=== PATIENT | male | born 1955 | race African-American/Black ===

== ENCOUNTER 2018-12-29 02:28 | Emergency (ER) | payer SELFPAY ==
[~2018-12-29] VITALS: Ht 180.3 cm; Wt 78.0 kg
[2018-12-29] MEDS ORDERED: ONDANSETRON 4MG ODT PO ONE (02:45)
[2018-12-29] MEDS ORDERED: SODIUM CHLORIDE 0.9% 1,000 ML IV ONE (03:15)
[2018-12-29 03:27] LABS: BASOPHILS % 0.4 % (0.0-2.0); EOSINOPHILS % 0.3 % (0.0-5.0); HEMATOCRIT. 36.5 % (42.0-52.0); HEMOGLOBIN. 12.3 g/dL (14.0-18.0); LYMPHOCYTES % 17.3 % (20.0-50.0); MEAN CORPUSCULAR HEMOGLOBIN 30.9 pg (28.0-32.0); MEAN CORPUSCULAR VOLUME 91.6 fL (80.0-94.0); MEAN PLATELET VOLUME 8.9 fl (7.4-10.4); MONOCYTES % 7.2 % (2.0-8.0); NEUTROPHILS % 74.8 % (40.0-76.0); PLATELET 197 x1000/uL (130-400); RED BLOOD CELL COUNT 3.99 mill/uL (4.7-6.1); RED CELL DISTRIBUTION WIDTH 13.1 % (11.6-14.6)
[2018-12-29 03:36] LABS: CHLORIDE 98 mEq/L (98-107)
[2018-12-29 03:40] LABS: ETHANOL BLOOD < 10 mg/dL
[2018-12-29 06:30] LABS: CLARITY URINE CLEAR (CLEAR); COLOR URINE YELLOW (YELLOW); KETONES URINE NEGATIVE (NEGATIVE); LEUKOCYTE ESTERASE URINE NEGATIVE (NEGATIVE); NITRITE URINE NEGATIVE (NEGATIVE); OCCULT BLOOD URINE NEGATIVE (NEGATIVE); PROTEIN URINE NEGATIVE (NEGATIVE); SPECIFIC GRAVITY URINE 1.021 (1.005-1.030)
[2018-12-29 07:00] LABS: *AMPHETAMINES SCREEN URINE NEGATIVE (NEGATIVE); *BARBITURATES SCREEN URINE NEGATIVE (NEGATIVE)
[2018-12-29 07:01] LABS: *BENZODIAZEPINES SCREEN URINE NEGATIVE (NEGATIVE); *COCAINE SCREEN URINE PRESUMTIVE POSITIVE (NEGATIVE); CANNABINOID URINE SCREEN NEGATIVE (NEGATIVE); METHADONE URINE SCREEN NEGATIVE (NEGATIVE); OPIATES URINE SCREEN NEGATIVE (NEGATIVE); PHENCYCLIDINE URINE SCREEN NEGATIVE (NEGATIVE)
[2018-12-29 10:35] VITALS: BP 155/80
== END 2018-12-29 11:00 | disposition home or self-care (01) ==
LOC: ER 02:28
DX: T40.5X1A Poisoning by cocaine, accidental (unintentional), initial encounter (principal); Y92.9 Unspecified place or not applicable; K92.0 Hematemesis; W01.0XXA Fall on same level from slipping, tripping and stumbling without subsequent striking against object, initial encounter; Y93.9 Activity, unspecified
CPT/HCPCS: 36415; 80053; 80305; 80307; 80320; 80329; 81003; 82962; 85025; 96360; 96361; 99283; J7030; Q0162; Z7610; G0480

== ENCOUNTER 2025-01-05 21:48 | Inpatient (IN) | payer MEDICARE, MEDICAID ==
[~2025-01-05] VITALS: Ht 172.7 cm; Wt 61.7 kg
[~2025-01-05 21:48] MED LIST: INSU100I28 SQ
[2025-01-05 21:49] VITALS: O2SAT 100
[2025-01-05] MEDS: SODIUM CHLORIDE 0.9% (SEPSIS BOLUS) IV ONE (22:26)
[2025-01-05] MEDS: PIPERACILLIN/TAZO 3.375G/50ML 50 ML IV ONE (22:27)
[2025-01-05 22:35] LABS: HEMATOCRIT. 43.8 % (42.0-52.0); HEMOGLOBIN. 13.8 g/dL (14.0-18.0); MEAN PLATELET VOLUME 8.9 fl (7.4-10.4); PLATELET 281 x1000/uL (130-400); RED BLOOD CELL COUNT 4.84 mill/uL (4.7-6.1); RED CELL DISTRIBUTION WIDTH 14.6 % (11.6-14.6)
[2025-01-05 22:45] LABS: INR 1.1
[2025-01-05 22:48] LABS: CREATININE 1.1 mg/dL (0.6-1.3); UREA NITROGEN BLOOD 32 mg/dL (9-23)
[2025-01-05 22:49] LABS: ETHANOL BLOOD < 10 mg/dL (<10)
[2025-01-05 22:50] LABS: ASPARTATE AMINOTRANSFERASE 15 IU/L (<34); BILIRUBIN DIRECT 0.5 mg/dL (<=3.0)
[2025-01-05 22:51] LABS: BILIRUBIN TOTAL 1.4 mg/dL (0.1-1.0); PROTEIN TOTAL 8.4 g/dL (6.0-8.3)
[2025-01-05 22:53] LABS: LYMPHOCYTES % MANUAL 6.0 % (20.0-50.0); MONOCYTES % MANUAL 1.0 % (2.0-8.0); NEUTROPHILS % MANUAL 93.0 % (45.0-75.0); PLATELET ESTIMATE NORMAL
[2025-01-05 23:09] LABS: TROPONIN I HIGH SENSITIVITY 75 ng/L (3.0-53)
[2025-01-05] MEDS: VANCOMYCIN 1G PREMIX 200 ML IV ONE (23:19)
[2025-01-06] MEDS ORDERED: ACETAMINOPHEN 325MG TABLET PO PRN (01:00)
[2025-01-06] MEDS ORDERED: ONDANSETRON HCL 4MG/2ML INJ IV PRN (01:00)
[2025-01-06] MEDS ORDERED: MAGNESIUM/ALUMINUM HYDROXIDE/SIMETHICONE 30ML UDC PO PRN (01:00)
[2025-01-06] MEDS ORDERED: DEXTROSE 50% WATER 50ML SYRINGE IV PRN (01:00)
[2025-01-06] MEDS: SODIUM CHLORIDE 0.9% 1,000 ML IV SCH (03:04)
[2025-01-06] MEDS: HYDROCODONE/ACETAMINOPHEN 5/325MG TABLET PO PRN (03:19)
[2025-01-06 03:50] VITALS: BP 120/75; PULSE 101; RESP 18; TEMP 36.418
[2025-01-06 05:29] LABS: INFLUENZA TYPE A Presumptive Negative (Pres. Neg.)
[2025-01-06 05:30] LABS: INFLUENZA TYPE B Presumptive Negative (Pres. Neg.)
[2025-01-06 05:32] LABS: RESPIRATORY SYNCYTIAL VIRUS Not Detected (Not Detectd)
[2025-01-06] MEDS: PIPERACILLIN/TAZO 3.375G/50ML 50 ML IV SCH (05:59)
[2025-01-06] MEDS: BLOOD SUGAR DIAGNOSTIC STRIP TEST SCH (07:03)
[2025-01-06] MEDS: MORPHINE SULFATE 2 MG/ML INJ (NOT FOR IM USE) IV PRN (07:09)
[2025-01-06 08:00] VITALS: BP 129/72; PULSE 87; RESP 17; TEMP 36.6; O2SAT 100
[2025-01-06] MEDS: INSULIN LISPRO 100 UNITS/ML SUBCUT SCH (08:48)
[2025-01-06] MEDS: PANTOPRAZOLE SODIUM 40 MG/VIAL IV SCH (08:48)
[2025-01-06] MEDS: ENOXAPARIN 40MG/0.4ML SYR SUBCUT SCH (08:49)
[2025-01-06] MEDS: VANCOMYCIN 750MG/150ML (BAXTER) IV SCH (10:22)
[2025-01-06 12:00] VITALS: BP 139/71; PULSE 93; RESP 18; TEMP 36.6; O2SAT 100
[2025-01-06 16:00] VITALS: BP 142/74; PULSE 89; RESP 20; TEMP 36.2; O2SAT 97
[2025-01-06 18:47] LABS: TROPONIN I HIGH SENSITIVITY 120 ng/L (3.0-53)
[2025-01-06 20:00] VITALS: BP 145/82; PULSE 84; RESP 17; TEMP 36.9; O2SAT 100
[2025-01-06] MEDS: ZOLPIDEM TARTRATE 5MG TABLET PO PRN (20:43)
[2025-01-06] MEDS: INSULIN GLARGINE 100 UNITS/ML SUBCUT SCH (21:26)
[2025-01-07] VITALS: BP 137/87; PULSE 83; RESP 18; TEMP 36.8; O2SAT 100
[2025-01-07 04:00] VITALS: BP 139/74; PULSE 75; RESP 18; TEMP 36.6; O2SAT 100
[2025-01-07 07:36] LABS: BASOPHILS % 0.5 % (0.0-2.0); EOSINOPHILS % 0.4 % (0.0-5.0); HEMATOCRIT. 32.4 % (42.0-52.0); HEMOGLOBIN. 10.5 g/dL (14.0-18.0); LYMPHOCYTES % 12.9 % (20.0-50.0); MEAN PLATELET VOLUME 8.5 fl (7.4-10.4); MONOCYTES % 11.8 % (2.0-8.0); NEUTROPHILS % 74.4 % (40.0-76.0); PLATELET 189 x1000/uL (130-400); RED BLOOD CELL COUNT 3.66 mill/uL (4.7-6.1); RED CELL DISTRIBUTION WIDTH 14.7 % (11.6-14.6)
[2025-01-07 07:52] LABS: CREATININE 0.7 mg/dL (0.6-1.3)
[2025-01-07 07:55] LABS: T4 FREE 0.95 ng/dL (0.89-1.76); UREA NITROGEN BLOOD 17 mg/dL (9-23)
[2025-01-07 08:00] VITALS: BP 155/81; PULSE 74; RESP 18; TEMP 36.8; O2SAT 98
[2025-01-07] MEDS: VANCOMYCIN 1G PREMIX 200 ML IV SCH (11:49)
[2025-01-07 12:00] VITALS: BP 177/86; PULSE 71; RESP 18; TEMP 37; O2SAT 100
[2025-01-07] MEDS: CLONIDINE 0.1MG TABLET PO PRN (12:39)
[2025-01-07 16:00] VITALS: BP 155/89; PULSE 70; RESP 18; TEMP 36.5; O2SAT 100
[2025-01-07 20:00] VITALS: BP 155/87; PULSE 72; RESP 18; TEMP 36.6; O2SAT 93
[2025-01-07] MEDS: AMLODIPINE 5MG TABLET PO SCH (22:10)
[2025-01-08] VITALS: BP 153/87; PULSE 65; RESP 18; TEMP 36.6; O2SAT 96
[2025-01-08 04:00] VITALS: BP 167/86; PULSE 66; RESP 18; TEMP 36.8; O2SAT 96
[2025-01-08 06:37] LABS: CLARITY URINE CLEAR (CLEAR); COLOR URINE DARK YELLOW (YELLOW); GLUCOSE URINE 3+ (NEGATIVE); KETONES URINE 1+ (NEGATIVE); LEUKOCYTE ESTERASE URINE NEGATIVE (NEGATIVE); NITRITE URINE NEGATIVE (NEGATIVE); OCCULT BLOOD URINE NEGATIVE (NEGATIVE); PH URINE 6.5 (4.5-8.0); PROTEIN URINE 1+ (NEGATIVE); SPECIFIC GRAVITY URINE 1.029 (1.005-1.030); UROBILINOGEN URINE >8.0 E.U./dL (0.2-1.0)
[2025-01-08 06:44] LABS: BASOPHILS % 0.3 % (0.0-2.0); EOSINOPHILS % 0.7 % (0.0-5.0); HEMATOCRIT. 34.0 % (42.0-52.0); HEMOGLOBIN. 11.0 g/dL (14.0-18.0); LYMPHOCYTES % 11.4 % (20.0-50.0); MEAN PLATELET VOLUME 8.6 fl (7.4-10.4); MONOCYTES % 11.9 % (2.0-8.0); NEUTROPHILS % 75.7 % (40.0-76.0); PLATELET 196 x1000/uL (130-400); RED BLOOD CELL COUNT 3.84 mill/uL (4.7-6.1); RED CELL DISTRIBUTION WIDTH 14.2 % (11.6-14.6)
[2025-01-08 07:00] LABS: BACTERIA URINE NONE SEEN; RBC URINE NONE SEEN /hpf (0-2); SQUAMOUS EPITHELIAL CELL URINE NONE SEEN /lpf (RARE/1+); WBC URINE NONE SEEN /hpf (0-2); YEAST URINE 2+
[2025-01-08 07:02] LABS: CREATININE 0.6 mg/dL (0.6-1.3); UREA NITROGEN BLOOD 11 mg/dL (9-23)
[2025-01-08 07:08] LABS: *AMPHETAMINES SCREEN URINE NEGATIVE (NEGATIVE)
[2025-01-08 07:09] LABS: *BARBITURATES SCREEN URINE NEGATIVE (NEGATIVE); *BENZODIAZEPINES SCREEN URINE NEGATIVE (NEGATIVE); *COCAINE SCREEN URINE NEGATIVE (NEGATIVE); METHADONE URINE SCREEN NEGATIVE (NEGATIVE); OPIATES URINE SCREEN PRESUMPTIVE POSITIVE (NEGATIVE)
[2025-01-08 07:11] LABS: CANNABINOID URINE SCREEN NEGATIVE (NEGATIVE); ECSTASY MDMA SCREEN URINE NEGATIVE (NEGATIVE); PHENCYCLIDINE URINE SCREEN NEGATIVE (NEGATIVE)
[2025-01-08] MEDS: FAMOTIDINE 20MG/2ML VIAL IV SCH (10:24)
[2025-01-08] MEDS: LOSARTAN 50 MG TABLET PO SCH (13:45)
[2025-01-08 20:00] VITALS: BP 142/85; PULSE 69; RESP 16; TEMP 36; O2SAT 97
[2025-01-09] VITALS: BP 123/76; PULSE 75; RESP 16; TEMP 36.5; O2SAT 96
[2025-01-09 07:21] LABS: BASOPHILS % 0.5 % (0.0-2.0); EOSINOPHILS % 0.6 % (0.0-5.0); HEMATOCRIT. 33.2 % (42.0-52.0); HEMOGLOBIN. 10.8 g/dL (14.0-18.0); LYMPHOCYTES % 16.1 % (20.0-50.0); MEAN PLATELET VOLUME 8.4 fl (7.4-10.4); MONOCYTES % 11.7 % (2.0-8.0); NEUTROPHILS % 71.1 % (40.0-76.0); PLATELET 194 x1000/uL (130-400); RED BLOOD CELL COUNT 3.79 mill/uL (4.7-6.1); RED CELL DISTRIBUTION WIDTH 14.3 % (11.6-14.6)
[2025-01-09 07:27] LABS: CREATININE 0.6 mg/dL (0.6-1.3)
[2025-01-09 07:28] LABS: UREA NITROGEN BLOOD 9 mg/dL (9-23)
[2025-01-09 08:00] VITALS: BP 158/81; PULSE 67; RESP 20; TEMP 36.7; O2SAT 95
[2025-01-09 08:04] LABS: VITAMIN B12 SERUM > 2000 pg/mL (211-911)
[2025-01-09] MEDS ORDERED: IOHEXOL-350 100 ML BOTTLE ONE (08:40)
[2025-01-09] MEDS: POTASSIUM CHLORIDE 20MEQ/PACKET PO SCH (09:30)
[2025-01-09] MEDS ORDERED: NALOXONE HCL 0.4MG/ML VIAL IV PRN (10:15)
[2025-01-09] MEDS: ASCORBIC ACID 250 MG TABLET PO SCH (10:15)
[2025-01-09] MEDS: FERROUS SULFATE 325MG TABLET PO SCH (10:15)
[2025-01-09 12:00] VITALS: BP 119/70; PULSE 77; RESP 20; TEMP 36.6; O2SAT 97
[2025-01-09 16:00] VITALS: BP 130/70; PULSE 75; RESP 18; TEMP 36.3; O2SAT 96
[2025-01-09] MEDS: CEFTRIAXONE 2GM/50ML 50 ML IV SCH (17:14)
[2025-01-09] MEDS: POTASSIUM CHLORIDE 20MEQ TABLET SR PO SCH (17:21)
[2025-01-09 20:00] VITALS: BP 139/76; PULSE 81; RESP 19; TEMP 36.4; O2SAT 97
[2025-01-10] VITALS: BP 152/74; PULSE 79; RESP 20; TEMP 36.5; O2SAT 96
[2025-01-10 04:00] VITALS: BP 143/89; PULSE 72; RESP 19; TEMP 36.4; O2SAT 96
[2025-01-10 08:00] VITALS: BP 138/77; PULSE 79; RESP 20; TEMP 36.4; O2SAT 100
[2025-01-10] MEDS ORDERED: LIDOCAINE HCL 1% 10 MG/ML 10ML VIAL ONE (12:48)
[2025-01-10] MEDS ORDERED: LOSA50TA41 PO (19:04)
[2025-01-10] MEDS ORDERED: AMLO5TAB88 PO (19:04)
[2025-01-10] MEDS ORDERED: FERR-63 PO (19:04)
[2025-01-10 20:00] VITALS: BP 159/87; PULSE 67; RESP 16; TEMP 36.7; O2SAT 99
[2025-01-10] MEDS ORDERED: CEFT2FRO5 IV (21:10)
[2025-01-10 21:24] VITALS: BP 159/87; PULSE 67; RESP 16; TEMP 98.1
== END 2025-01-10 22:50 | disposition home or self-care (01) | DRG 871 ==
LOC: ER 21:48 → EDBEDREQTM 01-06 01:19 → EDBEDREQDT 01-06 01:19 → EDBEDREQ 01-06 01:19 → ENRESERV 01-06 01:43 → 5WST 01-06 02:37
PROVIDERS: ADMIT Internal Medicine; ATTEND Internal Medicine
PROC: 02HV33Z Insertion of Infusion Device into Superior Vena Cava, Percutaneous Approach (ICD-10-PCS; principal; 2025-01-10)
PROC: B548ZZA Ultrasonography of Superior Vena Cava, Guidance (ICD-10-PCS; 2025-01-10)
DX: A41.59 Other Gram-negative sepsis (principal); G92.8 Other toxic encephalopathy; J18.9 Pneumonia, unspecified organism; E87.20 Acidosis, unspecified; I47.10 Supraventricular tachycardia, unspecified; E11.52 Type 2 diabetes mellitus with diabetic peripheral angiopathy with gangrene; N18.9 Chronic kidney disease, unspecified; E11.22 Type 2 diabetes mellitus with diabetic chronic kidney disease; Z20.822 Contact with and (suspected) exposure to COVID-19; I12.9 Hypertensive chronic kidney disease with stage 1 through stage 4 chronic kidney disease, or unspecified chronic kidney disease; E78.5 Hyperlipidemia, unspecified; L97.529 Non-pressure chronic ulcer of other part of left foot with unspecified severity; B96.1 Klebsiella pneumoniae [K. pneumoniae] as the cause of diseases classified elsewhere; M79.672 Pain in left foot; D50.9 Iron deficiency anemia, unspecified; E11.621 Type 2 diabetes mellitus with foot ulcer; Z86.73 Personal history of transient ischemic attack (TIA), and cerebral infarction without residual deficits; Z79.899 Other long term (current) drug therapy
CPT/HCPCS: 36415; 36573; 71045; 73630; 75635; 80048; 80076; 80202; 80305; 80320; 81003; 82270; 82607; 82962; 83540; 83550; 83605; 83735; 83880; 84145; 84439; 84443; 84481; 84484; 85025; 86850; 86900; 87077; 87106; 87186; 87420; 87426; 87804; 93005; 93306; 93923; 93970; 97162; 97535; 99291; C1725; J0696; J1308; J1650; J1815; J2003; J2270; J2470; J2543; J3373; J7030; Q9967; G0480